=== PATIENT | male | born 1985 | race African-American/Black ===

== ENCOUNTER 2016-12-05 10:20 | Emergency (ER) | payer MEDICAID ==
[~2016-12-05] VITALS: Ht 190.5 cm; Wt 75.0 kg
[2016-12-05 10:28] VITALS: BP 144/94
[2016-12-05] MEDS ORDERED: MOTRIN (10:31)
[2016-12-05] MEDS ORDERED: IBUPROFEN 800MG TABLET PO ONE (10:45)
== END 2016-12-05 11:38 | disposition home or self-care (01) ==
LOC: ER 10:56
DX: K08.89 Other specified disorders of teeth and supporting structures (principal); Z79.899 Other long term (current) drug therapy; F17.200 Nicotine dependence, unspecified, uncomplicated; F12.10 Cannabis abuse, uncomplicated
CPT/HCPCS: 99282

== ENCOUNTER 2019-01-25 03:21 | Emergency (ER) | payer SELFPAY ==
[~2019-01-25] VITALS: Ht 190.5 cm; Wt 70.7 kg
[~2019-01-25 03:21] MED LIST: MOTRIN
[2019-01-25 06:54] VITALS: BP 148/80
== END 2019-01-25 06:54 | disposition home or self-care (01) ==
LOC: ER 03:21
DX: J32.9 Chronic sinusitis, unspecified (principal); R04.0 Epistaxis; F12.10 Cannabis abuse, uncomplicated; Z90.89 Acquired absence of other organs
CPT/HCPCS: 99283

== ENCOUNTER 2019-07-06 11:51 | Emergency (ER) | payer SELFPAY ==
[~2019-07-06] VITALS: Ht 190.5 cm; Wt 73.0 kg
[2019-07-06] MEDS ORDERED: SODIUM CHLORIDE 0.9% 2,000 ML IV ONE (12:50)
[2019-07-06] MEDS ORDERED: ONDANSETRON HCL 4MG/2ML INJ IV STA (12:50)
[2019-07-06 12:58] LABS: BASOPHILS % 0.8 % (0.0-2.0); EOSINOPHILS % 2.1 % (0.0-5.0); HEMATOCRIT. 47.1 % (42.0-52.0); HEMOGLOBIN. 16.3 g/dL (14.0-18.0); MEAN CORPUSCULAR HEMOGLOBIN 30.2 pg (28.0-32.0); MEAN PLATELET VOLUME 7.4 fl (7.4-10.4); MONOCYTES % 10.3 % (2.0-8.0); NEUTROPHILS % 55.8 % (40.0-76.0); PLATELET 322 x1000/uL (130-400); RED BLOOD CELL COUNT 5.41 mill/uL (4.7-6.1); RED CELL DISTRIBUTION WIDTH 14.3 % (11.6-14.6)
[2019-07-06 12:59] LABS: CHLORIDE 107 mEq/L (98-107)
[2019-07-06 13:04] LABS: ETHANOL BLOOD < 10 mg/dL
[2019-07-06 13:46] VITALS: BP 119/86
[2019-07-06 14:40] LABS: CLARITY URINE CLEAR (CLEAR); COLOR URINE DARK YELLOW (YELLOW); KETONES URINE TRACE (NEGATIVE); LEUKOCYTE ESTERASE URINE 1+ (NEGATIVE); NITRITE URINE NEGATIVE (NEGATIVE); OCCULT BLOOD URINE 1+ (NEGATIVE); PROTEIN URINE 1+ (NEGATIVE); SPECIFIC GRAVITY URINE 1.025 (1.005-1.030)
== END 2019-07-06 14:39 | disposition home or self-care (01) ==
LOC: ER 11:51
DX: K52.9 Noninfective gastroenteritis and colitis, unspecified (principal); F17.200 Nicotine dependence, unspecified, uncomplicated
CPT/HCPCS: 36415; 80053; 80320; 81003; 83690; 85025; 96361; 96374; 99283; J2405; J7030; Z7610; G0480